=== PATIENT | female | born 1960 | race Caucasian/White ===

== ENCOUNTER 2021-05-24 15:25 | Emergency (ER) | payer OTHER ==
[~2021-05-24 15:25] MED LIST: NORCO PO; NORVASC5 MG PO; SOMA350 MG PO; VALIUM10 MG PO
[2021-05-24] MEDS ORDERED: MOBIC7.5 MG PO (17:29)
== END 2021-05-24 17:34 | disposition home or self-care (01) ==
LOC: FER 15:25
DX: S82.832A Other fracture of upper and lower end of left fibula, initial encounter for closed fracture (principal); I10 Essential (primary) hypertension; Z88.8 Allergy status to other drugs, medicaments and biological substances; Z79.899 Other long term (current) drug therapy; W10.1XXA Fall (on)(from) sidewalk curb, initial encounter; Y92.59 Other trade areas as the place of occurrence of the external cause; Z28.310 Unvaccinated for COVID-19
CPT/HCPCS: 73610; 73630